=== PATIENT | female | born 1955 | race Caucasian/White ===

== ENCOUNTER 2016-10-16 16:02 | Emergency (ER) | payer MEDICAID ==
[2016-10-16 16:06] VITALS: RESP 20; TEMP 97.8
--- NOTE | 2016-10-16 17:43 | C.PDOC ---
History Of Present Illness 61 y/o female presents to the ED for evaluation of left-sided lower back pain which began around 3 days ago. Patient notes her pain radiates to her left posterior leg. Patient denies fever, chills, neck pain, urinary/bowel incontinence, upper/lower extremity numbness/weakness, saddle anesthesia. Time Seen by Provider: 10/16/16 16:42 Chief Complaint (Nursing): Back Pain History Per: Patient History/Exam Limitations: no limitations Onset/Duration Of Symptoms: Days (3) Current Symptoms Are (Timing): Still Present Quality Of Discomfort: "Pain" Previous Symptoms: Back Pain Associated Symptoms: denies: Incontinence, New Weakness, New Numbness Additional History Per: Patient Past Medical History Reviewed: Historical Data, Nursing Documentation, Vital Signs Vital Signs: Last Vital Signs Temp 97.8 F 10/16/16 17:49 Pulse 68 10/16/16 17:49 Resp 20 10/16/16 17:49 BP 115/74 10/16/16 17:49 Pulse Ox 98 10/16/16 20:09 - Medical History PMH: Asthma, Bipolar Disorder, Personality Disorder, Schizophrenia Comment Only: Diabetes (type 2) Surgical History: No Surg Hx - [facility] Procedures CLOSURE SKIN & SUBCUTANEOUS NEC (12/25/14) TETANUS TOXOID ADMINIST (12/25/14) Family History: States: Unknown Family Hx - Social History Hx Tobacco Use: No Hx Alcohol Use: No Hx Substance Use: No - Immunization History Hx Tetanus Toxoid Vaccination: Yes Hx Influenza Vaccination: No Hx Pneumococcal Vaccination: No Review Of Systems Constitutional: Negative for: Fever, Chills Genitourinary: Negative for: Incontinence Musculoskeletal: Positive for: Back Pain (left-sided, lower ), Leg Pain (left, posterior ). Negative for: Neck Pain Neurological: Negative for: Weakness, Numbness Physical Exam - Physical Exam Appears: Non-toxic, Other (appears uncomfortable) Skin: Normal Color, Warm, Dry Head: Atraumatic Eye(s): bilateral: Normal Inspection Neck: Normal ROM, No Midline Cervical Tenderness, Supple Back: No Vertebral Tenderness, Paraspinal Tenderness (left side) Extremity: Normal ROM, No Tenderness, Capillary Refill, No Deformity, No Swelling Pulses: Left Dorsalis Pedis: Normal, Right Dorsalis Pedis: Normal Neurological/Psych: Oriented x3, Normal Speech, Normal Cognition, Normal Motor, Normal Sensation Gait: Steady ED Course And Treatment O2 Sat by Pulse Oximetry: 98 (on RA) Pulse Ox Interpretation: Normal Medical Decision Making Medical Decision Making: Plan: * Toradol IM * reassess and disposition Progress: Patient's symptoms are consistent with sciatica. Pt feeling much better after Toradol, will d/c with ibuprofen. Disposition Counseled Patient/Family Regarding: Diagnosis, Need For Followup, Rx Given - Disposition Referrals: [facility] [Outside] [facility] [Outside] Disposition: HOME/ ROUTINE Disposition Time: 17:38 Condition: IMPROVED Additional Instructions: Take ibuprofen as prescribed. Follow up with your doctor in a few days. 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 - Scribe Statement The provider has reviewed the documentation as recorded by the Scribe (Neelima Feliz) All medical record entries made by the Scribe were at my direction and personally dictated by me. I have reviewed the chart and agree that the record accurately reflects my personal performance of the history, physical exam, medical decision making, and the department course for this patient. I have also personally directed, reviewed, and agree with the discharge instructions and disposition.
[2016-10-16 17:50] VITALS: BP 115/74; PULSE 68
[2016-10-16 19:59] VITALS: O2SAT 98
== END 2016-10-16 17:49 | disposition home or self-care (01) ==
LOC: C.ER 16:02
DX: M54.32 Sciatica, left side (principal); E11.9 Type 2 diabetes mellitus without complications
CPT/HCPCS: 96372; 99283; J1885

== ENCOUNTER 2017-05-08 19:28 | Emergency (ER) | payer MEDICAID ==
[2017-05-08 19:50] VITALS: BP 136/82; PULSE 79; TEMP 97.6; O2SAT 99
--- NOTE | 2017-05-08 20:23 | C.PDOC ---
History Of Present Illness 62 year old female with a past medical history of diabetes who presents to the emergency department with a complaint of a right hand pain with redness and swelling after she was bitten by a domestic (does not go outside) cat yesterday , 05/07/2017. Reports she was in her sons house and tried to pet the cat when she was bitten. Denies fever.Tetanus not up to date. Time Seen by Provider: 05/08/17 19:58 Chief Complaint (Nursing): Bite History Per: Patient History/Exam Limitations: no limitations Onset/Duration Of Symptoms: Days Current Symptoms Are (Timing): Still Present Past Medical History Reviewed: Historical Data, Nursing Documentation, Vital Signs Vital Signs: Last Vital Signs Temp 97.6 F 05/08/17 19:47 Pulse 79 05/08/17 19:47 Resp 16 05/08/17 19:47 BP 136/82 05/08/17 19:47 Pulse Ox 99 05/08/17 21:43 - Medical History PMH: Asthma, Bipolar Disorder, Depression, Personality Disorder, Schizophrenia Comment Only: Diabetes (type 2) Surgical History: Appendectomy - [facility] Procedures CLOSURE SKIN & SUBCUTANEOUS NEC (12/25/14) TETANUS TOXOID ADMINIST (12/25/14) Family History: States: Unknown Family Hx - Social History Hx Tobacco Use: No Hx Alcohol Use: No Hx Substance Use: No - Immunization History Hx Tetanus Toxoid Vaccination: Yes Hx Influenza Vaccination: No Hx Pneumococcal Vaccination: No Review Of Systems Except As Marked, All Systems Reviewed And Found Negative. (As per HPI, otherwise negative) Constitutional: Negative for: Fever Musculoskeletal: Positive for: Hand Pain (Right) Physical Exam - Physical Exam Appears: Well, Non-toxic, Toxic Skin: Normal Color, Warm, Dry Head: Atraumatic, Normacephalic Extremity: Normal ROM, Tenderness (Tenderness over the whole second digit with pain that started to go to the next finger. ), Swelling (Erythema and swelling to the proximal phalanx over the MCP and volar region. ), Other (Bite escobedo noted to the dorsal part of the hand over the second MCP joint distally to wrist. Erythema distally to wrist and pain with movement of 3 rd digit. Streaks nored reaching the wrist ) Neurological/Psych: Oriented x3 (ALERT) ED Course And Treatment - Laboratory Results Result Diagrams: 05/08/17 20:41 05/08/17 20:41 O2 Sat by Pulse Oximetry: 99 (RA) Pulse Ox Interpretation: Normal Medical Decision Making Medical Decision Making: Time: 2024 --CMP --CBC w/ diff --Zosyn IVPB 3.375 gm 100 ml & 50 ml --Urinalysis --Tetanus 0.5 ml IM Time: 2040 --WBC: 12.4 (High) Time: 2135 --Physician Consult Routine: Dr. Gary Steven for infected care bite to the hand. --Admit to hospital as inpatient for regular bed request for infected cat bite to the hand under the care of Dr. Ryne Mcclendon MD Disposition - Disposition Disposition: HOSPITALIZED Disposition Time: 21:37 Condition: STABLE - Clinical Impression Clinical Impression: Cat bite of right hand with infection
[2017-05-08] MEDS ORDERED: Piperacillin/Tazobact 3.375 gm 100 ML IV STA (20:26)
[2017-05-08] MEDS ORDERED: Piperacill/Tazo 3.375gm in Dex 3.375 GM/50 ML BAG IVPB STA (20:29)
[2017-05-08 20:44] LABS: BASO # 0.1 K/uL (0.0-0.2); BASO % 1.1 % (0.0-2.0); EOS # 0.2 K/uL (0.0-0.7); EOS % 1.2 % (0.0-4.0); HEMOGLOBIN 12.6 g/dL (11.0-16.0); LYMPH # 2.1 K/uL (1.0-4.3); MEAN CELL VOLUME 82.2 fL (81.0-99.0); MEAN CORPUSCULAR HEMOGLOBIN 26.9 pg (27.0-31.0); MEAN CORPUSCULAR HGB CONC 32.7 g/dL (33.0-37.0); MONO # 0.9 K/uL (0.0-0.8); MONO % 7.1 % (0.0-10.0); NEUT # 9.1 K/uL (1.8-7.0); NEUT % 73.6 % (50.0-75.0); RBC 4.69 Mil/uL (3.80-5.20); RED CELL DISTRIBUTION WIDTH 15.3 % (11.5-14.5); WHITE BLOOD COUNT 12.4 K/uL (4.8-10.8)
[2017-05-08 20:52] LABS: SQUAMOUS EPITHIAL 2 /hpf (0-5); URINE BILIRUBIN NEGATIVE (NEGATIVE); URINE BLOOD 1+ (NEGATIVE); URINE CLARITY Clear (Clear); URINE GLUCOSE (UA) NORMAL (Normal); URINE LEUKOCYTE ESTERASE NEG Leu/uL (Negative); URINE NITRATE NEGATIVE (NEGATIVE); URINE PROTEIN NEGATIVE (NEGATIVE); URINE UROBILINOGEN NORMAL mg/dL (0.2-1.0)
[2017-05-08 20:56] LABS: URINE COLOR YELLOW (YELLOW)
[2017-05-08 20:57] LABS: ALB/GLOB RATIO 1.2 (1.0-2.1); ALBUMIN 4.4 g/dL (3.5-5.0); ALT/SGPT 47 U/L (9-52); AST/SGOT 56 U/L (14-36); BLOOD UREA NITROGEN 17 mg/dL (7-17); CALCIUM 8.8 mg/dl (8.6-10.4); GFR AFRICAN-AMERICAN > 60; GFR NON-AFRICAN AMERICAN > 60
[2017-05-08] MEDS ORDERED: Tetanus/Diphtheria Toxoids 0.5 ml Syringe IM ONE ×2 (21:08→21:11)
--- NOTE | 2017-05-08 22:11 | CP.PCM.DIS ---
Provider - Provider Date of Admission: 05/08/17 21:34 Attending physician: Ryne Mcclendon MD Consults: Surgery-Dr. Steven Time Spent in preparation of Discharge (in minutes): 31 Diagnosis - Discharge Diagnosis (1) Cat bite of right hand Status: Acute (2) Left against medical advice Status: Acute Hospital Course - Lab Results Lab Results: Most Recent Lab Values WBC 12.4 K/uL (4.8-10.8) H 05/08/17 20:41 RBC 4.69 Mil/uL (3.80-5.20) 05/08/17 20:41 Hgb 12.6 g/dL (11.0-16.0) 05/08/17 20:41 Hct 38.6 % (34.0-47.0) 05/08/17 20:41 MCV 82.2 fL (81.0-99.0) 05/08/17 20:41 MCH 26.9 pg (27.0-31.0) L 05/08/17 20:41 MCHC 32.7 g/dL (33.0-37.0) L 05/08/17 20:41 RDW 15.3 % (11.5-14.5) H 05/08/17 20:41 Plt Count 303 K/uL (130-400) 05/08/17 20:41 MPV 8.0 fL (7.2-11.7) 05/08/17 20:41 Neut % (Auto) 73.6 % (50.0-75.0) 05/08/17 20:41 Lymph % (Auto) 17.0 % (20.0-40.0) L 05/08/17 20:41 [place] % (Auto) 7.1 % (0.0-10.0) 05/08/17 20:41 Eos % (Auto) 1.2 % (0.0-4.0) 05/08/17 20:41 Baso % (Auto) 1.1 % (0.0-2.0) 05/08/17 20:41 Neut # 9.1 K/uL (1.8-7.0) H 05/08/17 20:41 Lymph # 2.1 K/uL (1.0-4.3) 05/08/17 20:41 [place] # 0.9 K/uL (0.0-0.8) H 05/08/17 20:41 Eos # 0.2 K/uL (0.0-0.7) 05/08/17 20:41 Baso # 0.1 K/uL (0.0-0.2) 05/08/17 20:41 Sodium 136 mmol/L (132-148) 05/08/17 20:41 Potassium 4.5 mmol/L (3.6-5.2) 05/08/17 20:41 Chloride 101 mmol/L (98-107) 05/08/17 20:41 Carbon Dioxide 29 mmol/L (22-30) 05/08/17 20:41 Anion Gap 10 (10-20) 05/08/17 20:41 BUN 17 mg/dL (7-17) 05/08/17 20:41 Creatinine 0.8 mg/dL (0.7-1.2) 05/08/17 20:41 Est GFR ( Amer) > 60 05/08/17 20:41 Est GFR (Non-Af Amer) > 60 05/08/17 20:41 Random Glucose 90 mg/dL (65-105) 05/08/17 20:41 Calcium 8.8 mg/dl (8.6-10.4) 05/08/17 20:41 Total Bilirubin 1.0 mg/dL (0.2-1.3) 05/08/17 20:41 AST 56 U/L (14-36) H 05/08/17 20:41 ALT 47 U/L (9-52) 05/08/17 20:41 Alkaline Phosphatase 106 U/L (38-126) 05/08/17 20:41 Total Protein 8.1 g/dL (6.3-8.3) 05/08/17 20:41 Albumin 4.4 g/dL (3.5-5.0) 05/08/17 20:41 Globulin 3.7 gm/dL (2.2-3.9) 05/08/17 20:41 Albumin/Globulin Ratio 1.2 (1.0-2.1) 05/08/17 20:41 Urine Color Yellow (YELLOW) 05/08/17 20:41 Urine Clarity Clear (Clear) 05/08/17 20:41 Urine pH 5.0 (5.0-8.0) 05/08/17 20:41 Ur Specific [place] 1.029 (1.003-1.030) 05/08/17 20:41 Urine Protein Negative mg/dL (NEGATIVE) 05/08/17 20:41 Urine Glucose (UA) Normal mg/dL (Normal) 05/08/17 20:41 Urine Ketones Negative mg/dL (NEGATIVE) 05/08/17 20:41 Urine Blood 1+ (NEGATIVE) H 05/08/17 20:41 Urine Nitrate Negative (NEGATIVE) 05/08/17 20:41 Urine Bilirubin Negative (NEGATIVE) 05/08/17 20:41 Urine Urobilinogen Normal mg/dL (0.2-1.0) 05/08/17 20:41 Ur Leukocyte Esterase Neg José Miguel/uL (Negative) 05/08/17 20:41 Urine WBC (Auto) 1 /hpf (0-5) 05/08/17 20:41 Urine RBC (Auto) 14 /hpf (0-3) H 05/08/17 20:41 Ur Squamous Epith Cells 2 /hpf (0-5) 05/08/17 20:41 - Hospital Course Hospital Course: Initial Note: "This is a 62 year old female with PMHx Bipolar disorder, schizophrenia, asthma who comes in complaining of a cat bite on the ventral side of her right palm overlying the region of the 2nd metacarpal. Patient states that this occurred yesterday. Patient was bitten by her son's cat which she stated had all of its shots and vaccinations. Patient reports that there was swelling and some numbness in the region, and she could not move it at the time. Patient arrived at the ED and received IV antibiotics and a tetanus shot. Patient reports that the swelling has gone down and that she feels better and wishes to go home, requesting PO antibiotics despite the need for admission and IV antibiotics explained to her." Hospital Course: Patient admitted for cat bite and possible infection. Dr. Steven was consulted in the ED and recommended inpatient admission with IV antibiotics. Patient given 1 dose of Zosyn and tetanus shot. However, patient did not wish to remain in the hospital. The patient declines admission to the hospital and wishes to leave the Emergency Department. This action is against my medical advice. This decision was made with informed refusal. The patient was told that admission to the hospital is necessary. Explanation of the reasons why were discussed. The risks of leaving were explained to the patient and include, but are not limited to, worsening of known or currently unknown conditions, permanent disability and from undiagnosed or untreated conditions. The patient has the capacity to make this informed decision and understands my explanation of the current medical problem and risks of leaving. The patient voluntarily accepts these risks and signed an AMA form documenting our conversation. The patient was given the opportunity to ask questions and reconsider. The patient was encouraged to return to the Emergency Department at any time for further care. Prescription for Augmentin 500/125 mg PO Q8H for 5 days was provided to the patient along with follow up information for the [facility] and Dr. Steven. Patient stated that she will return to the emergency room if symptoms worsen or do not improve. She is aware of possible loss of her hand and possible risk of . Discharge Exam - Neurological Exam Neurological exam: Alert, Oriented x3 - Additional Findings Additional findings: Patient refused physical exam, but on inspection, there is erythema and swelling on the ventral aspect of the right hand in the region overlying the 2nd metacarpal bone with one small streak of erythema. Discharge Plan - Discharge Medications Prescriptions: Amoxicillin/Clavulanate [Augmentin 500 MG-125 MG] 1 tab PO Q8H #15 tab - Follow Up Plan Condition: UNKNOWN Disposition: AGAINST MEDICAL ADVICE Additional Instructions: Please follow up at the [facility] whose number and information has been provided in your paperwork. Please follow up with the hand surgeon Dr. Steven after you leave the hospital. His information has been included in your paperwork. If your symptoms worsen or you experience new ones, please return to the emergency room. Referrals: [facility] at [facility] [Outside] Gary Steven MD [Staff Provider] -
--- NOTE | 2017-05-08 22:11 | CP.PCM.HP ---
<Carlos Roland - Last Filed: 05/09/17 03:50> History of Present Illness - History of Present Illness History of Present Illness: PGY-1 H&P for Dr. Mcclendon CC: Cat bite This is a 62 year old female with PMHx Bipolar disorder, schizophrenia, asthma who comes in complaining of a cat bite on the ventral side of her right palm overlying the region of the 2nd metacarpal. Patient states that this occurred yesterday. Patient was bitten by her son's cat which she stated had all of its shots and vaccinations. Patient reports that there was swelling and some numbness in the region, and she could not move it at the time. Patient arrived at the ED and received IV antibiotics and a tetanus shot. Patient reports that the swelling has gone down and that she feels better and wishes to go home, requesting PO antibiotics despite the need for admission and IV antibiotics explained to her. PMHx: Bipolar disorder, schizophrenia, asthma PSHx: Appendectomy, tubal ligation, right forearm surgery Allergies: NKDA Social: Former smoker, alcoholic, and former drug user, but would not elaborate on any of these things stating that "it was a long time ago" PMD: denies Psych: CRC Present on Admission - Present on Admission Any Indicators Present on Admission: No Review of Systems - Constitutional Constitutional: absent: Chills, Fever - EENT Eyes: absent: Change in Vision Ears: absent: Decreased Hearing Nose/Mouth/Throat: absent: Nasal Congestion - Cardiovascular Cardiovascular: absent: Chest Pain - Respiratory Respiratory: absent: Dyspnea - Gastrointestinal Gastrointestinal: absent: Nausea, Vomiting - Genitourinary Genitourinary: absent: Dysuria - Musculoskeletal Musculoskeletal: Numbness - Integumentary Integumentary: Rash (states that it's improving over the right hand) Past Patient History - Past Social History Smoking Status: Never Smoked - PULMONARY Hx Asthma: Yes - PSYCHIATRIC Hx Bipolar Disorder: Yes Hx Depression: Yes Hx Schizophrenia: Yes Hx Substance Use: No - SURGICAL HISTORY Hx Appendectomy: Yes Meds Home Medications: Home Medication List Medication Instructions Recorded Confirmed Type Amoxicillin/Clavulanate [Augmentin 1 tab PO Q8H #15 tab 05/08/17 Rx 500 MG-125 MG] Allergies/Adverse Reactions: Allergies Allergy/AdvReac Type Severity Reaction Status Date / Time No Known Allergies Allergy Verified 05/08/17 19:50 Physical Exam - Neurological Exam Neurological exam: Alert, Oriented x3 - Additional Findings Additional findings: Patient refused physical exam, but on inspection, there is erythema and swelling on the ventral aspect of the right hand in the region overlying the 2nd metacarpal bone with one small streak of erythema. Results - Vital Signs Recent Vital Signs: Last Vital Signs Temp 97.6 F 05/08/17 19:47 Pulse 79 05/08/17 19:47 Resp 16 05/08/17 19:47 BP 136/82 05/08/17 19:47 Pulse Ox 99 05/08/17 21:43 - Labs Result Diagrams: 05/08/17 20:41 05/08/17 20:41 Labs: Laboratory Results - last 24 hr 05/08/17 05/08/17 05/08/17 20:41 20:41 20:41 WBC 12.4 H RBC 4.69 Hgb 12.6 Hct 38.6 MCV 82.2 MCH 26.9 L MCHC 32.7 L RDW 15.3 H Plt Count 303 MPV 8.0 Neut % (Auto) 73.6 Lymph % (Auto) 17.0 L [place] % (Auto) 7.1 Eos % (Auto) 1.2 Baso % (Auto) 1.1 Neut # 9.1 H Lymph # 2.1 [place] # 0.9 H Eos # 0.2 Baso # 0.1 Sodium 136 Potassium 4.5 Chloride 101 Carbon Dioxide 29 Anion Gap 10 BUN 17 Creatinine 0.8 Est GFR ( Amer) > 60 Est GFR (Non-Af Amer) > 60 Random Glucose 90 Calcium 8.8 Total Bilirubin 1.0 AST 56 H ALT 47 Alkaline Phosphatase 106 Total Protein 8.1 Albumin 4.4 Globulin 3.7 Albumin/Globulin Ratio 1.2 Urine Color Yellow Urine Clarity Clear Urine pH 5.0 Ur Specific [place] 1.029 Urine Protein Negative Urine Glucose (UA) Normal Urine Ketones Negative Urine Blood 1+ H Urine Nitrate Negative Urine Bilirubin Negative Urine Urobilinogen Normal Ur Leukocyte Esterase Neg Urine WBC (Auto) 1 Urine RBC (Auto) 14 H Ur Squamous Epith Cells 2 Assessment & Plan - Assessment and Plan (Free Text) Plan: Cat Bite Dr. Steven was consulted in the ED and recommended inpatient admission with IV antibiotics. Patient given 1 dose of Zosyn and tetanus shot. However, patient did not wish to remain in the hospital. The patient declines admission to the hospital and wishes to leave the Emergency Department. This action is against my medical advice. This decision was made with informed refusal. The patient was told that admission to the hospital is necessary. Explanation of the reasons why were discussed. The risks of leaving were explained to the patient and include, but are not limited to, worsening of known or currently unknown conditions, permanent disability and from undiagnosed or untreated conditions. The patient has the capacity to make this informed decision and understands my explanation of the current medical problem and risks of leaving. The patient voluntarily accepts these risks and signed an AMA form documenting our conversation. The patient was given the opportunity to ask questions and reconsider. The patient was encouraged to return to the Emergency Department at any time for further care. Prescription for Augmentin 500/125 mg PO Q8H for 5 days was provided to the patient along with follow up information for the [facility] and Dr. Steven. Patient stated that she will return to the emergency room if symptoms worsen or do not improve. She is aware of possible loss of her hand and possible risk of . Case DW Dr. Danelle Roland <Ryne Mcclendon - Last Filed: 05/09/17 05:55> Results - Vital Signs Recent Vital Signs: Last Vital Signs Temp 97.6 F 05/08/17 19:47 Pulse 79 05/08/17 19:47 Resp 20 05/08/17 22:27 BP 136/82 05/08/17 19:47 Pulse Ox 99 05/08/17 22:27 - Labs Result Diagrams: 05/08/17 20:41 05/08/17 20:41 Labs: Laboratory Results - last 24 hr 05/08/17 05/08/17 05/08/17 20:41 20:41 20:41 WBC 12.4 H RBC 4.69 Hgb 12.6 Hct 38.6 MCV 82.2 MCH 26.9 L MCHC 32.7 L RDW 15.3 H Plt Count 303 MPV 8.0 Neut % (Auto) 73.6 Lymph % (Auto) 17.0 L [place] % (Auto) 7.1 Eos % (Auto) 1.2 Baso % (Auto) 1.1 Neut # 9.1 H Lymph # 2.1 [place] # 0.9 H Eos # 0.2 Baso # 0.1 Sodium 136 Potassium 4.5 Chloride 101 Carbon Dioxide 29 Anion Gap 10 BUN 17 Creatinine 0.8 Est GFR ( Amer) > 60 Est GFR (Non-Af Amer) > 60 Random Glucose 90 Calcium 8.8 Total Bilirubin 1.0 AST 56 H ALT 47 Alkaline Phosphatase 106 Total Protein 8.1 Albumin 4.4 Globulin 3.7 Albumin/Globulin Ratio 1.2 Urine Color Yellow Urine Clarity Clear Urine pH 5.0 Ur Specific [place] 1.029 Urine Protein Negative Urine Glucose (UA) Normal Urine Ketones Negative Urine Blood 1+ H Urine Nitrate Negative Urine Bilirubin Negative Urine Urobilinogen Normal Ur Leukocyte Esterase Neg Urine WBC (Auto) 1 Urine RBC (Auto) 14 H Ur Squamous Epith Cells 2 Assessment & Plan - Date & Time Date: 05/09/17 (Patient was to be admitted for a Cat bite and subsequent cellulitis of her hand, but then wished to leave AMA. Patient advised on the dangers of leaving AMA including loss of hand and , but she wished to leave. Given a prescription for Augmentin. Advised to follow up with her PMD as soon as possible. Advised to return to an emergency room if condition worsens. Monitor for acute changes.) Time: 05:53
[2017-05-08 22:28] VITALS: RESP 20
== END 2017-05-08 22:27 | disposition left against medical advice (07) ==
LOC: C.ER 19:28 → UNDOADMIN 21:34 → C.9E 21:34 → UNDODISIN 22:22 → C.ER 22:27
DX: S61.451A Open bite of right hand, initial encounter (principal); L08.9 Local infection of the skin and subcutaneous tissue, unspecified; W55.01XA Bitten by cat, initial encounter
CPT/HCPCS: 80053; 81001; 85025; 90471; 90714; 96365; 99283; J2543